=== PATIENT | male | born 1980 | race Caucasian/White ===

== ENCOUNTER 2016-07-07 13:29 | Emergency (ER) | payer SELFPAY ==
[~2016-07-07] VITALS: Ht 193 cm; Wt 84.8 kg
[2016-07-07 15:45] VITALS: BP 131/67
== END 2016-07-07 15:45 | disposition home or self-care (01) ==
LOC: ED 13:29
DX: S42.021A Displaced fracture of shaft of right clavicle, initial encounter for closed fracture (principal); X58.XXXA Exposure to other specified factors, initial encounter; Y93.89 Activity, other specified; Y99.8 Other external cause status; Y92.89 Other specified places as the place of occurrence of the external cause